=== PATIENT | male | born 1970 | race Caucasian/White ===

== ENCOUNTER → 2016-11-21 | Outpatient (CLI) | payer MEDICAID ==
--- NOTE | 2016-11-21 11:52 | CPEKG ---
Heart Rate: 75 RR Interval: 800 P-R Interval: 188 QRSD Interval: 90 QT Interval: 376 QTC Interval: 420 P [place]: 63 QRS [place]: 91 T Wave [place]: 59 EKG Severity - NORMAL ECG - EKG Impression: SINUS RHYTHM Electronically Signed By: Janie Ceballos 21-Nov-2016 17:12:04
== END ==
LOC: FCP 11:39
PROVIDERS: ATTEND Registered Nurse
DX: G89.4 Chronic pain syndrome (principal); M51.36 Other intervertebral disc degeneration, lumbar region; G62.9 Polyneuropathy, unspecified; M96.1 Postlaminectomy syndrome, not elsewhere classified; Z79.899 Other long term (current) drug therapy